=== PATIENT | female | born 1965 | race Hispanic/Latino ===

== ENCOUNTER 2019-01-13 10:13 | Outpatient (CLI) | payer BC ==
[2019-01-13 11:11] LABS: Blood Urea Nitrogen 16 mg/dL (7-17)
== END 2019-01-13 10:14 | disposition home or self-care (01) ==
LOC: CT 10:13
PROVIDERS: ATTEND Internal Medicine Gastroenterology
DX: R10.9 Unspecified abdominal pain (principal)
CPT/HCPCS: 36415; 82565; 84520

== ENCOUNTER 2019-01-24 10:33 | Outpatient (CLI) | payer BC ==
--- NOTE | 2019-01-24 12:38 | Cat Scan Report ---
CT ABDOMEN WITH AND WITHOUT CONTRAST AND CT PELVIS WITH CONTRAST HISTORY: Chronic bilateral upper abdominal pain, endometrial ablation in 2004 COMPARISON: None. TECHNIQUE: CT images of the abdomen and pelvis were obtained following administration of intravenous contrast. Oral contrast was also administered. Noncontrast CT images of the abdomen were also obtai dannielle. All CT scans at this location are performed using CT dose reduction for ALARA by means of automa papi exposure control. CONTRAST: 100 ml of Omnipaque 300. FINDINGS: CT ABDOMEN: Lung Bases: Clear. Liver: No significant abnormality. Biliary: There is noncalcified debris within the gallbladder consistent with stones and sludge. No ev idence for gallbladder dilatation, wall thickening or surrounding fluid. The common bile duct and int rahepatic ducts are unremarkable. Spleen: No significant abnormality. Unenlarged. Pancreas: No significant abnormality. Adrenals: No significant abnormality. Kidneys: No significant abnormality. Lymphatics: No lymphadenopathy. Vasculature: No significant abnormality. Bowel/Peritoneum: There are a few scattered diverticula in the sigmoid colon. No evidence for acute i nflammation or bowel obstruction.. No free air. No free fluid. Normal appendix. CT PELVIS: : No significant abnormality. Osseous Structures: Intact. Minimal thoracolumbar spondylosis. Additional Findings: None IMPRESSION: Cholelithiasis but no evidence for acute cholecystitis. No acute inflammatory process is identified. Minimal sigmoid diverticulosis. Signer Name: Hernandez Arrington Jr, MD Signed: 01/24/2019 12:34 PM Workstation Name: [id number]
== END 2019-01-24 10:34 | disposition home or self-care (01) ==
LOC: CT 10:33
PROVIDERS: ATTEND Internal Medicine Gastroenterology
DX: K80.20 Calculus of gallbladder without cholecystitis without obstruction (principal)
CPT/HCPCS: 74178; Q9967

== ENCOUNTER 2019-03-25 07:11 | Day surgery (SDC) | payer BC ==
[2019-03-25] MEDS ORDERED: NACL 0.9% 1000 ML 1,000 ML IV SCH (08:00)
--- NOTE | 2019-03-25 08:19 | Anesthesia Consultation ---
Anesthesia Consult and Med Hx Date of service: 03/25/19 - Airway Anesthetic Teeth Evaluation: Good ROM Head & Neck: Adequate Mental/Hyoid Distance: Adequate Mallampati Class: Class III Intubation Access Assessment: Probably Good - Pre-Operative Health Status ASA Pre-Surgery Classification: ASA2 Proposed Anesthetic Plan: MAC - Pulmonary Hx Smoking: No Hx Asthma: No Hx Respiratory Symptoms: No SOB: No COPD: No Home Oxygen Therapy: No Hx Pneumonia: No Hx Sleep Apnea: No - Cardiovascular System Hx Hypertension: No Hx Coronary Artery Disease: No Hx Heart Attack/AMI: No Hx Angina: No Hx Percutaneous Transluminal Coronary Angioplasty (PTCA): No Hx Cardia Arrhythmia: No Hx Pacemaker: No Hx Internal Defibrillator: No Hx Valvular Heart Disease: No Hx Heart Murmur: No Hx Peripheral Vascular Disease: No - Central Nervous System Hx Neuromuscular Disorder: No Hx Seizures: No CVA: No Hx Back Pain: No Hx Psychiatric Problems: No - Gastrointestinal Hx Ulcer: No Hx Gastroesophageal Reflux Disease: No - Endocrine Hx Renal Disease: No Hx End Stage Renal Disease: No Hx Cirrhosis: No Hx Liver Disease: No Hx Insulin Dependent Diabetes: No Hx Non-Insulin Dependent Diabetes: No Hx Thyroid Disease: No Hx Hypothyroidism: No Hx Hyperthyroidism: No - Hematic Hx Anemia: No Hx Sickle Cell Disease: No - Other Systems Hx Alcohol Use: No Hx Substance Use: No Hx Cancer: No Hx Obesity: No
--- NOTE | 2019-03-25 08:19 | Anesthesia Day of Surgery ---
Anesthesia Day of Surgery - Day of Surgery Patient Examined: Yes Patient H&P Reviewed: Yes Patient is NPO: Yes
[2019-03-25] MEDS ORDERED: DIPRIVAN 10 MG/ML IV ONE ×2 (09:16→09:17)
[2019-03-25] MEDS ORDERED: VERSED ONE (09:24)
--- NOTE | 2019-03-25 09:46 | Short Stay Summary ---
Short Stay Documentation Date of service: 03/25/19 - History H&P: obtained from office Past Medical History: GERD, other (History of Davenport's) Past Surgical History: Social history: no significant social history, lives with family - Allergies and Medications Current Medications: Allergies No Known Allergies Allergy (Verified 03/25/19 07:48) Home Medications Medication Instructions Recorded Confirmed Last Taken Type No Known Home Medications [No 03/25/19 03/25/19 Unknown History Reported Home Medications] Active Medications Sodium Chloride (Nacl 0.9% 1000 Ml) 1,000 mls @ 50 mls/hr IV DIRECT [place] Last Admin: 03/25/19 08:13 Dose: 50 mls/hr Documented by: - Physical exam General appearance: no acute distress, well-nourished Integumentary: no rash, no growths, no abnormal pigmentation HEENT: Atraumatic, PERRLA, EOMI, Mucous membr. moist/pink Lungs: Clear to auscultation, Normal air movement Breasts: deferred Heart: Regular rate, Normal S1, Normal S2, No murmurs Gastrointestinal: normoactive bowel sounds, no tenderness, no distended, no masses, no guarding, no organomegaly Rectal Exam: deferred Extremities: no ischemia, pulses intact, pulses symmetrical, No edema, Full ROM Neurological: Normal gait, Normal speech, Strength at 5/5 X4 ext, Normal tone, Sensation intact, Cranial nerves 3-12 NL - Brief post op/procedure progress note Date of procedure: 03/25/19 Estimated blood loss: none Pathology: list (antral biopsies for h.pylori, biopsies of GE junction) Specimen disposition: to lab Condition: stable - Disposition Condition at discharge: Good Disposition: DC-01 TO HOME OR SELFCARE - Discharge Diagnoses (1) History of Davenport's esophagus Status: Acute (2) Abdominal pain, epigastric Status: Acute Short Stay Discharge Plan Follow up with: PRIMARY CARE, [Primary Care Provider] - 7 Days
--- NOTE | 2019-03-25 09:52 | Operative Report ---
Operative Report Operative Report: Date of procedure: 03/25/2019 Procedure: Esophagogastroduodenoscopy with antral biopsies for H. pylori and bi opsies of the GE junction due to a history of Davenport's. Preprocedure diagnosis: History of Davenport's. History of episodic abdominal pain. Post procedure diagnosis: Moderately large hiatus hernia. No suggestion of Davenport's by appearance. Normal-appearing stomach and duodenum otherwise. Endoscopist: Dr. Khan Anesthesia: Monitored anesthesia care per anesthesia department Medications: Propofol per anesthesia Estimated blood loss: 0 After careful discussion of the nature and purpose of the procedure as well as details the technique risks benefits and alternatives consent was obtained. The patient was placed in the left lateral decubitus position and medicated per anesthesia. The tip of the [employer] EQ 570 video scope was passed per orum under direct vision into the esophagus and advanced into the stomach and descending duodenum. The descending duodenum the duodenal bulb and pylorus were symmetrical and normal. The scope was withdrawn into the stomach and the stomach then gently insufflated with air. The antrum was normal. Biopsies were taken to assess for H. pylori. The stomach was further insufflated and the scope was then retroflexed and partially withdrawn. A medium to large hiatus hernia was seen in the cardia on retroflexed view. The cardia, fundus, and body of the stomach were otherwise within normal limits and the stomach was easily distensible.The scope was then withdrawn in the forward position. The esophagogastric junction was at 34 cm. The diaphragmatic hiatus was at 38 cm. The Z line was sharp. There is the appearance of a nonobstructing Schatzki's ring at the Z line. Biopsies were taken at the Z line. Mild inflammation at the Z line was also noted although there were no tongues of salmon pink mucosa to suggest Davenport's. The esophageal body was normal throughout. The procedure was was well tolerated and the patient was observed in recovery. Impressions: Moderately large hiatus hernia. Nonobstructing Schatzki's ring without the appearance of Davenport's. Biopsies pending. Normal antrum. Biopsies pending in the antrum for H. pylori. Normal duodenum. Plan: Await biopsies. Future endoscopy will be planned based on biopsy f indings. The patient will call the office in 2 weeks to discuss the findings and follow-up care. Electronically signed: Ever Khan MD
[2019-03-25 10:12] VITALS: BP 141/81
[2019-03-25] MEDS ORDERED: XYLOCAINE MPF 2% ONE (13:00)
== END 2019-03-25 07:12 | disposition home or self-care (01) ==
LOC: GIO 07:11
PROVIDERS: ATTEND Internal Medicine Gastroenterology
DX: K29.40 Chronic atrophic gastritis without bleeding (principal); K20.9 Esophagitis, unspecified; K44.9 Diaphragmatic hernia without obstruction or gangrene; K80.20 Calculus of gallbladder without cholecystitis without obstruction; K22.70 Barrett's esophagus without dysplasia; Z87.891 Personal history of nicotine dependence; Z87.19 Personal history of other diseases of the digestive system; Z98.890 Other specified postprocedural states; Z98.891 History of uterine scar from previous surgery
CPT/HCPCS: 43239; 88305; 88312; 88342; J2250; J2704; J7030

== ENCOUNTER 2020-05-26 10:09 | Outpatient (CLI) | payer BC ==
--- NOTE | 2020-05-26 12:29 | XRay Report ---
LEFT WRIST 3 VIEWS INDICATION: LEFT WRIST PAIN. COMPARISON: None. IMPRESSION: No acute osseous or soft tissue abnormality. No significant DJD. Signer Name: Hernandez Arrington Jr, MD Signed: 05/26/2020 12:24 PM Workstation Name: [id number]
== END 2020-05-26 10:10 | disposition home or self-care (01) ==
LOC: SPVIMAG 10:09
PROVIDERS: ATTEND Surgery
DX: M25.532 Pain in left wrist (principal)

== ENCOUNTER 2021-02-10 09:26 | Outpatient (CLI) | payer BC ==
--- NOTE | 2021-02-10 17:49 | Mammography Report ---
DIGITAL SCREENING MAMMOGRAM WITH TOMOSYNTHESIS WITH CAD, 02/10/2021 CLINICAL INFORMATION / INDICATION: Routine Screening Mammography. Breast reduction surgery in 2004. TECHNIQUE: Digital bilateral 2D and 3D mammography with tomosynthesis was obtained in the craniocaud al and mediolateral oblique projections. Computer-Aided Detection (CAD) analysis was used for interp retation of this study. COMPARISON: 12/18/19, 11/12/18 FINDINGS: Breast Density: There are scattered areas of fibroglandular density. No dominant mass, suspicious calcifications, or architectural distortion in either breast. Bilateral breast reduction findings are unchanged. IMPRESSION: No mammographic evidence of malignancy. Follow up recommendation: Routine yearly BI-RADS Category 2: Benign. A "normal" or negative report should not discourage follow up or biopsy of a clinically significant f inding. A written summary of these findings will be mailed to the patient. The patient will be entered into a mammography reporting system which will generate a reminder letter for the patient's next appointmen t at the appropriate interval. The [employer] recommends yearly mammograms starting at age 40 and continuing as l opal as a woman is in good health. Breast MRI is recommended for women with an approximate 20-25% or greater lifetime risk of breast cancer, including women with a strong family history of breast or ova dmitri cancer or who have been treated for Hodgkin's disease. Signer Name: Vicky Bynum MD Signed: 02/10/2021 5:45 PM Workstation Name: [id number]
== END 2021-02-10 09:27 | disposition home or self-care (01) ==
LOC: SPVWC 09:26
PROVIDERS: ATTEND Surgery
DX: Z12.31 Encounter for screening mammogram for malignant neoplasm of breast (principal)
CPT/HCPCS: 77063; 77067

== ENCOUNTER 2021-03-24 09:03 | Outpatient (CLI) | payer BC ==
--- NOTE | 2021-03-24 10:23 | XRay Report ---
LEFT FOOT 3 VIEWS INDICATION: PAIN IN LEFT FOOT. COMPARISON: None. IMPRESSION: No acute osseous or soft tissue abnormality. 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 There is prominent medial spurr ing from the joint. The remaining joint spaces are unremarkable. Small plantar spur is noted. Signer Name: Hernandez Arrington Jr, MD Signed: 03/24/2021 10:19 AM Workstation Name: [id number]
== END 2021-03-24 09:04 | disposition home or self-care (01) ==
LOC: SPVIMAG 09:03
PROVIDERS: ATTEND Surgery
DX: M19.072 Primary osteoarthritis, left ankle and foot (principal)